=== PATIENT | female | born 1990 | race Caucasian/White ===

== ENCOUNTER 2022-03-02 08:11 | Emergency (ER) | payer OTHER ==
[~2022-03-02] VITALS: Ht 167.6 cm; Wt 109.0 kg
--- NOTE | 2022-03-02 08:36 | PHYS DOC ---
Past History Past Surgical History: Gastric Bypass Adult General Chief Complaint Chief Complaint: VOMITING IN HPI HPI Patient is a 31-year-old female with nausea and vomiting. Patient's currently about 12 weeks . She has not had any abdominal pain except for some epigastric discomfort in association with the vomiting. She is not any fever or diarrhea. No burning with urination or blood in urine. Symptoms been present off and on for several days, worse today. Review of Systems Review of Systems Constitutional: Denies fever Eyes: Denies change in visual acuity or eye pain HENT: Denies sore throat Respiratory: Denies shortness of breath Cardiovascular: Denies chest pain GI: Denies abd pain : Denies dysuria Musculoskeletal: Denies back or extremity injury Integument: Denies rash or skin lesions Neurologic: Denies headache, focal weakness or sensory changes All other systems were reviewed and found to be within normal limits, except as documented in this note. Physical Exam Physical Exam Constitutional: Well developed, well nourished, no acute distress, non-toxic appearance. HENT: Normocephalic, atraumatic, bilateral external ears normal, mucosa moist, nose normal. Eyes: EOMI, conjunctiva normal, no discharge. Neck: Normal range of motion, supple, no stridor, no meningeal signs. Cardiovascular: Regular rate and rhythm Lungs & Thorax: Bilateral breath sounds clear to auscultation Abdomen: Soft, no tenderness or obvious masses Skin: Warm, dry, no erythema, no rash. Extremities: No tenderness, no cyanosis, no clubbing, ROM intact, no edema. Neurologic: Alert and oriented, normal motor function, normal sensory function, no focal deficits noted. Psychologic: Affect normal, judgement normal, mood normal. EKG EKG [] Radiology/Procedures Radiology/Procedures [] Heart Score C/O Chest Pain: No Risk Factors: Risk Factors: DM, Current or recent (<one month) smoker, HTN, HLP, family history of CAD, obesity. Risk Scores: Risk Factors: DM, Current or recent (<one month) smoker, HTN, HLP, family history of CAD, obesity. Course & Med Decision Making Course & Med Decision Making Pertinent Labs and Imaging studies reviewed. (See chart for details) [] This is a 31-year-old female here for trimester . She came in with quite a bit of nausea and vomiting. She was given a liter of normal saline and 10 of Reglan IV. On reassessment symptoms have improved. Labs are un remarkable. We will give her prescription for Reglan to be used as needed, follow-up with her DELIVERY COORDINATOR, she stable for discharge. Dragon Disclaimer Dragon Disclaimer This electronic medical record was generated, in whole or in part, using a voice recognition dictation system. Departure Departure: Impression: Primary Impression: Hyperemesis gravidarum Disposition: HOME / SELF CARE / HOMELESS Condition: STABLE Referrals: DELIA TIMMONS DO (PCP) Patient Instructions: Diet - Hyperemesis Gravidarum, Hyperemesis Gravidarum Scripts Metoclopramide Hcl (REGLAN) 10 Mg Tablet 1 TAB PO QID PRN for NAUSEA for 30 Days, #20 TAB 0 Refills before food and bedtime Prov: ASHLEIGH BOATENG MD 03/02/22 ASHLEIGH BOATENG MD Mar 02, 2022 08:36
[2022-03-02] MEDS ORDERED: IV NORMAL SALINE 1,000ML 1,000 ML IV ONE (08:45)
[2022-03-02] MEDS ORDERED: METOCLOPRAMIDE HCL 10 MG/2 ML VIAL. IVP ONE (09:00)
[2022-03-02 09:23] LABS: CALCIUM 9.2 mg/dL (8.5-10.1); CREATININE 0.6 mg/dL (0.6-1.0); GFR 118.2; POTASSIUM 3.6 mmol/L (3.5-5.1)
[2022-03-02 09:28] LABS: BASO # 0.1 x10^3/uL (0.0-0.2); BASO % 1 % (0-3); EOS % 0 % (0-3); HEMATOCRIT 37.2 % (36.0-47.0); HEMOGLOBIN 12.6 g/dL (12.0-15.5); LYMPH # 0.4 x10^3/uL (1.0-4.8); LYMPH % 5 % (24-48); MEAN CORPUSCULAR HEMOGLOBIN 28 pg (25-35); MEAN CORPUSCULAR HGB CONC 34 g/dL (31-37); MEAN CORPUSCULAR VOLUME 84 fL (79-100); MONO # 0.3 x10^3/uL (0.0-1.1); MONO % 3 % (0-9); NEUT # 8.3 x10^3uL (1.8-7.7); NEUT % 91 % (31-73); PLATELET COUNT 267 x10^3/uL (140-400); RED BLOOD COUNT 4.46 x10^6/uL (3.50-5.40); RED CELL DISTRIBUTION WIDTH 12.9 % (11.5-14.5); WHITE BLOOD COUNT 9.1 x10^3/uL (4.0-11.0)
[2022-03-02 09:31] LABS: ALBUMIN 3.3 g/dL (3.4-5.0); ALBUMIN/GLOBULIN RATIO 0.8 (1.0-1.7); TOTAL BILIRUBIN 0.5 mg/dL (0.2-1.0); TOTAL PROTEIN 7.7 g/dL (6.4-8.2)
[2022-03-02 09:40] LABS: BACTERIA,URINE 0 /HPF (0-FEW); CLARITY,URINE CLEAR; COLOR,URINE YELLOW; GLUCOSE,URINE NEG (NEG); NITRITE,URINE NEG (NEG); SQUAMOUS EPITHELIAL CELL,UR FEW /LPF
[2022-03-02] MEDS ORDERED: METO10TA81 PO (10:08)
[2022-03-02 10:36] VITALS: BP 133/67
== END 2022-03-02 10:37 | disposition home or self-care (01) ==
LOC: ER 08:11
DX: O21.0 Mild hyperemesis gravidarum (principal); Z3A.12 12 weeks gestation of pregnancy; Z98.84 Bariatric surgery status
CPT/HCPCS: 36415; 80053; 81001; 83690; 85025; 96361; 96374; 99283; J2765; J7030